=== PATIENT | female | born 1965 | race Caucasian/White ===

== ENCOUNTER 2017-02-08 13:57 | Emergency (ER) | payer SELFPAY ==
[~2017-02-08] VITALS: Ht 162.6 cm; Wt 51.8 kg
[~2017-02-08 13:57] MED LIST: BACTRIM DS 8001 TAB PO; CLINDAMYCIN HC150 MG PO; COPEGUS200 MG PO; FLAGYL500 MG PO; FLEXERIL 1010 MG/TAB PO; GENTAMICIN EYE D5 ML OD; IBUPROFEN400 MG PO; KEFLEX500 MG PO; LORTAB 5/500 501 TAB PO; NAPROSYN 2250 MG/TAB PO; NAPROSYN500 MG PO; NAPROXEN ER500 MG PO; NO HOME MEDICATIONS; PEGASYS180 MCG/ML MR; PEN-VEE K500 MG PO; PENICILLIN V500 MG PO; PENICILLIN250 MG PO; PERCOCET 325 MG1 TA2 PO; PROVENTIL0.09 MG/A1 IH; ULTRAM 50MG TAB50 MG PO; VALIUM 5MG T5 MG/TAB PO; ZANAFLEX 4MG TAB4 MG PO; ZITHROMAX500 MG PO
[2017-02-08 14:04] VITALS: BP 156/86; TEMP 97.9
[2017-02-08 14:49] VITALS: PULSE 55
== END 2017-02-08 14:52 | disposition home or self-care (01) ==
LOC: COL.ER 13:57
DX: L84 Corns and callosities (principal); F17.210 Nicotine dependence, cigarettes, uncomplicated; Z90.49 Acquired absence of other specified parts of digestive tract

== ENCOUNTER 2017-04-11 15:19 | Emergency (ER) | payer OTHER ==
[~2017-04-11] VITALS: Ht 162.6 cm; Wt 50.5 kg
[2017-04-11 15:21] VITALS: BP 130/87; TEMP 98.8
[2017-04-11 15:58] LABS: INFLUENZA B NEGATIVE
[2017-04-11] MEDS ORDERED: PREDNISONE20 MG PO (16:55)
[2017-04-11] MEDS ORDERED: ZITHROMAX Z PA250 MG PO (16:55)
[2017-04-11 16:59] VITALS: PULSE 84
== END 2017-04-11 17:00 | disposition home or self-care (01) ==
LOC: COL.ER 15:19
PROVIDERS: Nurse Practitioner
DX: J20.9 Acute bronchitis, unspecified (principal); I10 Essential (primary) hypertension; G43.909 Migraine, unspecified, not intractable, without status migrainosus; F17.210 Nicotine dependence, cigarettes, uncomplicated

== ENCOUNTER → 2017-04-18 | Outpatient (CLI) | payer OTHER ==
[~2017-04-18] MED LIST changes: +PREDNISONE20 MG PO; +ZITHROMAX Z PA250 MG PO
== END ==
LOC: COL.PUL 07:55
DX: J44.9 Chronic obstructive pulmonary disease, unspecified (principal); F17.200 Nicotine dependence, unspecified, uncomplicated

== ENCOUNTER 2017-07-06 06:51 | Emergency (ER) | payer OTHER ==
[~2017-07-06] VITALS: Ht 162.6 cm; Wt 51.4 kg
[2017-07-06 06:53] VITALS: TEMP 97.9
[2017-07-06] MEDS ORDERED: ROXICODONE 55 MG/TAB PO (07:22)
[2017-07-06 07:40] VITALS: BP 149/90; PULSE 60
== END 2017-07-06 07:45 | disposition home or self-care (01) ==
LOC: COL.ER 06:51
DX: M54.31 Sciatica, right side (principal); G43.909 Migraine, unspecified, not intractable, without status migrainosus; F17.210 Nicotine dependence, cigarettes, uncomplicated; Z87.19 Personal history of other diseases of the digestive system; Z90.89 Acquired absence of other organs
CPT/HCPCS: J1885

== ENCOUNTER 2017-08-10 11:35 | Emergency (ER) | payer OTHER ==
[~2017-08-10] VITALS: Ht 162.6 cm; Wt 51.1 kg
[2017-08-10 11:35] VITALS: TEMP 33.1
[~2017-08-10 11:35] MED LIST changes: +ROXICODONE 55 MG/TAB PO
[2017-08-10 11:59] LABS: HEMATOCRIT 44.3 % (37.0-47.0); HEMOGLOBIN 14.1 g/dl (12.5-16.0); MEAN CELL VOLUME 103 fl (80.0-100.0); MEAN CORPUSCULAR HEMOGLOBIN 33 pg (27.0-31.0); MEAN CORPUSCULAR HGB CONC 32 g/dl (33.0-37.0); MEAN PLATELET VOLUME 10.6 fl (7.4-10.4); PLATELET COUNT 207 K/mm3 (130-400); REDCELL DISTRIBUTION WIDTH-CV 12.2 % (11.5-14.5)
[2017-08-10 12:39] LABS: BAND 19 % (0-10); EOSINOPHIL 1 % (0-4); LYMPHOCYTE 70 % (20.0-51.0); NEUTROPHILS 8 % (42.0-75.2); PLATELET ESTIMATE NORMAL (NORMAL)
[2017-08-10 13:05] VITALS: BP 157/107; PULSE 88
[2017-08-10 13:33] LABS: ALBUMIN 4.1 gm/dL (3.5-5.0); BILIRUBIN,TOTAL 0.7 mg/dL (0.0-1.0); CREATININE, serum 0.8 mg/dL (0.52-1.25); POTASSIUM 3.5 mmol/L (3.4-5.0); TOTAL PROTEIN 7.2 gm/dL (6.4-8.2)
[2017-08-10 13:48] LABS: TROPONIN-I 0.814 ng/mL (0.000-0.034)
[2017-08-10 18:23] LABS: ARTERIAL BLD GAS O2 SATURATION 98.9 % (92-100); ARTERIAL BLD GAS TCO2 CT 18.2; ARTERIAL BLOOD GAS BASE EXCESS -9.3 (-2-2); ARTERIAL BLOOD GAS PCO2 38.2 mmHg (35-45); ARTERIAL BLOOD GAS pH 7.27 (7.35-7.45)
[2017-08-10 18:24] LABS: ARTERIAL BLOOD GAS PO2 415.8 mmHg (80-100)
== END 2017-08-10 13:10 | disposition short-term general hospital (02) ==
LOC: COL.ER → EDBD 11:41 → COL.ER 11:41
PROVIDERS: Family Medicine
DX: I46.9 Cardiac arrest, cause unspecified (principal); J44.9 Chronic obstructive pulmonary disease, unspecified; F17.210 Nicotine dependence, cigarettes, uncomplicated
CPT/HCPCS: J0171; J0461; J0610; J1265; J7030